=== PATIENT | male | born 1960 | race Caucasian/White ===

== ENCOUNTER 2020-09-26 11:30 | Emergency (ER) | payer BC ==
[~2020-09-26] VITALS: Ht 165.1 cm; Wt 64.0 kg
[2020-09-26 11:34] VITALS: BP 148/80
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
[2020-09-26] MEDS ORDERED: CLINDAMYCIN 600 MG in DEXTROSE 5% 50 ML IV ONE (12:20)
[2020-09-26] MEDS ORDERED: KETOROLAC 15 MG/ML VIAL IVP ONE (12:20)
--- NOTE | 2020-09-26 12:30 | NUR ---
Labs drawn bedside and walked to lab
[2020-09-26] MEDS ORDERED: CLINDAMYCIN 600 MG/4 ML VIAL ONE (12:32)
[2020-09-26 12:50] LABS: BASOPHILS % (AUTO) 0.3 % (0.0-2.0); EOSINOPHILS # (AUTO) 0.1 K/uL (0-0.4); HEMATOCRIT 40.4 % (36-52); HEMOGLOBIN 13.9 g/dL (12.0-18.0); LYMPHOCYTES # (AUTO) 1.5 K/uL (2.0-11.5); MEAN CORPUSCULAR HEMOGLOBIN 33 pg (27-31); MEAN CORPUSCULAR HGB CONC 34 g/dL (33-37); MEAN CORPUSCULAR VOLUME 95.9 fL (80-94); MONOCYTES # (AUTO) 0.8 K/uL (0.8-1.0); MONOCYTES % (AUTO) 6.6 % (1.7-9.3); NEUTROPHILS # (AUTO) 9.4 K/uL (1.8-7.7); NEUTROPHILS % (AUTO) 79.1 % (42.2-75.2); PLATELET COUNT (AUTO) 310 K/uL (140-450); RED BLOOD CELL COUNT(AUTO) 4.21 MIL/uL (4.20-6.10); RED CELL DISTRIBUTION WIDTH 12.7 % (11.6-13.7); WHITE BLOOD COUNT (AUTO) 11.9 K/uL (4.8-10.8)
[2020-09-26 13:02] LABS: ALBUMIN 3.6 g/dL (3.4-5.0); ANION GAP 9.9 (8-16); CARBON DIOXIDE 29.1 mmol/L (21-32); TOTAL BILIRUBIN 0.9 mg/dL (0.0-1.0)
[2020-09-26] MEDS ORDERED: NAPR-54 PO (13:29)
[2020-09-26] MEDS ORDERED: CLIN150C1 PO (13:29)
--- NOTE | 2020-09-26 13:48 | NUR ---
Patient discharged with v/s stable. Written and verbal after care instructions given and explained. Patient alert, oriented and verbalized understanding of instructions. Ambulatory with steady gait. All questions addressed prior to discharge. ID band removed. Patient advised to follow up with PMD. Rx of Cleocin and Naprosyn given. Patient educated on indication of medication including possible reaction and side effects. Opportunity to ask questions provided and answered.
[2020-09-26 13:50] VITALS: BP 131/66
== END 2020-09-26 13:48 | disposition home or self-care (01) ==
LOC: MED 11:30
DX: L03.116 Cellulitis of left lower limb (principal)
CPT/HCPCS: 36415; 73630; 80053; 85025; 96365; 96375; 99284; J1885; J3490